=== PATIENT | female | born 1960 | race Caucasian/White ===

== ENCOUNTER 2017-04-30 00:40 | Observation (INO) ==
[2017-04-30 02:09] LABS: HEMOGLOBIN 15.6 g/dL (12.0-16.0); MCH 30.4 PG (27-31); MCHC 34.7 g/dL (33-37); MCV 87.7 FL (81-99); MPV 10.7 FL (7.4-10.4); RBC 5.13 XMIL (4.2-5.4)
[2017-04-30] MEDS ORDERED: DILAUDID IV ONE ×2 (02:10→04:23)
[2017-04-30] MEDS ORDERED: ZOFRAN IV ONE (02:12)
[2017-04-30 02:22] LABS: AGAP 17; ALBUMIN 4.1 g/dL (3.5-5.0); ALKALINE PHOSPHATASE 64 U/L (32-104); AMYLASE 20 U/L (20-200); BUN 11 mg/dL (8-22); CALCIUM 9.2 mg/dL (8.8-10.2); CHLORIDE 99 mmol/L (98-107); COSMO 281; GOT 13 U/L (10-30); GPT 8 U/L (10-36); LIPASE 12 U/L (13-60); POTASSIUM 3.3 mmol/L (3.5-5.1); SODIUM 141 mmol/L (136-145); TCO2 25 mmol/L (25-35); TOTAL BILIRUBIN 0.31 mg/dL (0.20-1.00); TOTAL PROTEIN 6.8 g/dL (6.3-8.3)
--- NOTE | 2017-04-30 04:22 | PROVIDER DOCUMENTATION ---
This chart was entered by Zoya Hung Scribe, acting as scribe for Catarino Cox MD. HPI-General Adult - General Chief Complaint: Abdominal Pain Stated Complaint: abd pain Time Seen by Provider: 04/30/17 02:15 Source: patient, family Allergies/Adverse Reactions: Patient Allergies Allergy/AdvReac Type Severity Reaction Status Date / Time dextromethorphan Allergy Unknown Verified 04/30/17 01:03 [From DURAPH[facility] DM] guaifenesin Allergy Unknown Verified 04/30/17 01:03 [From [facility]UR[facility] DM] phenylephrine Allergy Unknown Verified 04/30/17 01:03 [From [facility]URAPH[facility] DM] codeine AdvReac NAUSEA/VOMI Verified 04/30/17 01:03 TING Home Medications: Home Medication List Medication Instructions Recorded Confirmed Last Taken Type Lorazepam 1 mg PO PRN PRN 03/24/16 03/24/16 Unknown History Prasugrel [Effient] 10 mg PO DAILY 03/24/16 03/24/16 Unknown History - History of Present Illness -Gen Adult Nature of Presenting Problems: 57 Y/O F present to ER by EMS with the complain of abd pain, and back pain. pt states that she has Hx of pancreatic cancer and currently pancreatitis. pt states that she was seeing Dr. Santiago as her oncologist and was later refereed to pain treatment center. pt states pain in her back. pt states that she feels nauseated, vomit and diarrhea. pt states that she has done pancreatic evaluation at [facility] where they insert a needle to remove the cyst. Location of Pain/Injury: reports: abdomen, back Onset/Duration: reports: just prior to arrival Associated Symptoms: reports: back/neck pain, diarrhea, nausea, vomiting, other (abd pain) Review of Systems - Adult - REVIEW OF SYSTEMS - ADULT Constitutional: reports: no symptoms reported Eyes: reports: no symptoms reported Ears, Nose, Mouth & Throat: reports: no symptoms reported Cardiovascular: reports: no symptoms reported Respiratory: reports: no symptoms reported Gastrointestinal: reports: abdominal pain, diarrhea, nausea, vomiting Genitourinary: reports: no symptoms reported Musculoskeletal: reports: back pain. denies: neck pain Integumentary: reports: no symptoms reported Neurological: reports: no symptoms reported Psychiatric: reports: no symptoms reported Endocrine: reports: no symptoms reported Hematologic/Lymphatic: reports: no symptoms reported Allergic/Immunologic: reports: no symptoms reported All Other Systems: Reviewed and Negative Past History - Adult - PAST MEDICAL HISTORY-ADULT Review of Records: reports: Old Records Reviewed, Nursing Assessment Review - IMMUNIZATION STATUS Childhood Immunizations: See Nurse Assessment Flu Vaccine: See Nurse Assessment - SOCIAL HISTORY Smoking: cigarettes Provider spent 3-5 mins advising pt. on dangers of tobacco.: Discussed manners to quit use, and f/u contacts for add'l counseling. Physical Exam-General - PHYSICAL EXAM-ADULT Initial Vital Signs Reviewed: Yes - CONSTITUTIONAL General Appearance: appears well, alert - EYES Eyes: PERRL/EOMI, pink conjunctivae - NECK Neck: non-tender, full range of motion, supple - RESPIRATORY Respiratory: lungs clear, normal breath sounds - CARDIOVASCULAR Cardiovascular: regular rate, rhythm, no edema - GASTROINTESTINAL (ABDOMEN) Abdominal Exam: soft, tenderness (lower abd) - MUSCULOSKELETAL Back Exam: no vertebral tenderness, CVA tenderness - SKIN Integumentary: normal color, normal turgor, warm/dry - NEUROLOGIC Neurologic: grossly normal, no motor/sensory deficits - PSYCHIATRIC Psych/Mental Status: normal mood/affect, normal thought content, normal thought process, oriented x 3 Progress - PLAN OF CARE/RESULTS Progress/Plan/Lab Results: Vital Signs - 8 hr 04/30/17 00:55 Temperature 98.3 F Pulse Rate 79 Respiratory Rate 20 Blood Pressure 170/73 O2 Sat by Pulse Oximetry 100 Laboratory Results - last 24 hr 04/30/17 01:30 WBC 6.92 RBC 5.13 Hgb 15.6 Hct 45.0 MCV 87.7 MCH 30.4 MCHC 34.7 RDW Std Deviation 15.3 H Plt Count 147 MPV 10.7 H Orders Category Date Time Status AMYLASE [CHEM] Stat Lab 04/30/17 01:30 Received CBC WITH NO DIFF [HEME] Stat Lab 04/30/17 01:30 Completed COMPREHENSIVE METABOLIC PANEL [CHEM] Stat Lab 04/30/17 01:30 Received LIPASE [CHEM] Stat Lab 04/30/17 01:30 Received Hydromorphone [Dilaudid] Med 04/30/17 02:10 Discontinued 1 mg IV NOW ONE Ondansetron [Zofran] Med 04/30/17 02:12 Discontinued 4 mg IV NOW ONE Result Diagrams: 04/30/17 01:30 04/30/17 01:30 - CONSULTS/PCP/HOSPITALIST Notification #1 *Consult/PCP/Hospitalist*: Nakul Time Discussed: 04:20 Consult Disposition: Admit Departure - Departure Date of Disposition Decision: 04/30/17 Time of Disposition Decision: 04:21 DIAGNOSIS: Pancreatic cancer Disposition: ADMITTED INPATIENT 09 Certified Medical Emergency: Emergent Condition: Poor Referrals and Follow-Ups: None,PCP [Primary Care Provider] - - Critical Care Note This patient required my direct & personal management of CC.: Yes Total Time (mins): 45 Critical Care Statement: This patient required my direct personal management to treat or rule out processes, the absence of which, could potentiallly result in sudden, clinically significant life or limb threatening deterioration. This chart was documented by the indicated scribe, (Zoya Hung Scribe) and accurately reflects the services I performed and decisions made by me, Catarino Cox MD, as attested by the provider's signature.
--- NOTE | 2017-04-30 05:28 | HISTORY AND PHYSICAL ---
PRIMARY CARE PHYSICIAN: None. CHIEF COMPLAINT: Pain all over. HISTORY OF PRESENTING ILLNESS: A 57-year-old female with a history of pancreatic adenocarcinoma, status post recent pancreatic abalation who apparently had been on opioids for more than 15 years. Recently, she states that her pain doctor left the area , and that she was unable to get any appropriate pain control. She was started on fentanyl sublingual tablets; however, when she had gone to another pain clinic, they refused to write it for her and recommended she go for inpatient rehab. She presented to emergency department in moderate amount of distress, writhing in the bed with pain. States her pain level is about 10/10. Due to her acute nature of her pain, it was thought that she would need hospitalization for further treatment and management. At the time of my examination, she had denied any headache, fever, chills, chest pain, shortness of breath hemoptysis or any weight changes, but complained of her back and multiple other joints hurting. PAST MEDICAL HISTORY: pancreatic adenocarcinoma, coronary artery disease. PAST SURGICAL HISTORY: pancreatic abalation, coronary stent, hysterectomy, cholecystectomy. ALLERGIES: codeine, guaifenesin, phenylephrine. CURRENT MEDICATIONS: As listed in the MAR. SOCIAL HISTORY: A 40-pack year history of smoking. She denies any history of alcohol or illicit drug use. FAMILY HISTORY: Positive for coronary disease in mother and father. REVIEW OF SYSTEMS: Twelve point review of systems is as in HPI. Other systems negative. PHYSICAL EXAMINATION: GENERAL: Cooperative, friendly female. She is in moderate distress from pain. VITAL SIGNS: Includes temperature 98.3 degrees, pulse 79, respirations 20, blood pressure 117/73. She is saturating 100%. HEENT: Atraumatic, normocephalic. Extraocular movements intact. PERRLA. NECK: No masses. CHEST: Clear to auscultation. CARDIOVASCULAR: Regular rate and rhythm. ABDOMEN: Soft. Positive bowel sounds. EXTREMITIES: No edema. NEURO: She is awake, alert, oriented x3. : No bladder distention. SKIN: Warm. LABORATORIES AND STUDIES: WBC 6.92, hemoglobin 15.6, hematocrit 45.0, platelets 147,000. Sodium 141, potassium 3.3, chloride 99, CO2 25, BUN is 11, creatinine 0.6, glucose is 108. ASSESSMENT: This is a 57-year-old female with a history of pancreatic adenocarcinoma and coronary artery disease had presented to the emergency department due to having withdrawal symptoms due to lack of having any pain medications. The patient is opioid dependent greater than 15 years or so. Her pain specialist apparently does not practice in the area and she has been without appropriate pain control, she states. Due to her acute nature of her pain, she will need hospitalization for further stabilization. 1. Intractable pain. 2. Pancreatic adenocarcinoma. 3. Coronary artery disease. PLAN: 1. We will admit patient to medical floor. 2. We will continue with supportive treatment. Give IV fluids. Give patient adequate pain control. 3. We will consult Social Service for appropriate referral to a pain specialist. 4. We will consult her oncologist for assistance with her pancreatic adenocarcinoma. 5. Restart her home medications. 6. We will put patient on DVT prophylaxis with SCD. 7. We will continue to follow and reassess. cc: Vinayak Bruce MD MTDD
[2017-04-30] MEDS: NS 1,000 ML IV SCH ×2 (06:31→20:18)
[2017-04-30] MEDS: DILAUDID IV PRN ×5 (06:32→22:27)
[2017-04-30] MEDS: NORCO-10 PO PRN ×3 (12:17→20:16)
[2017-04-30] MEDS: ASPIRIN PO SCH (12:17)
--- NOTE | 2017-04-30 15:41 | CONSULTATION ---
DATE OF CONSULTATION: 04/30/2017 REASON FOR CONSULTATION: For pancreatic cancer, patient known. HISTORY OF PRESENT ILLNESS: Ms. Golden is a 57-year-old, female, who we have treated for pancreatic adenocarcinoma, who presented to [facility] complaining of all-over pain. Patient has recently been referred to a pain clinic as she is on chronic pain medications. Patient is no longer receiving chemo treatments. The patient reports that she went to the pain clinic, and they wanted to wean her off of some of her medications. They recommended that she go to an inpatient service to have that done. The patient declined. She is now in with opioid withdrawals. The patient is status post pancreatic ablation. Her last chemo was in 11/2016. She had pancreatic ablation in 01/2017. PAST MEDICAL HISTORY: 1. Pancreatic cancer. 2. Coronary artery disease. 3. Chronic pain. PAST SURGICAL HISTORY: 1. Pancreatic ablation. 2. Coronary stent placement. 3. Hysterectomy. 4. Cholecystectomy. SOCIAL HISTORY: Patient has a [id number] history of smoking. She denies any alcohol or illicit drug use. Patient is and lives with her spouse. She has 2 children. FAMILY HISTORY: Positive for coronary artery disease in both her mother and her father. REVIEW OF SYSTEMS: A 12-point review of systems has been completed and is negative except for what is expressed in the HPI. PHYSICAL EXAMINATION: Vital Signs: Temperature 98.8 degrees, heart rate 72, respirations 12, blood pressure 130/75, O2 saturations 96% on room air. General: female lying in the hospital bed. She is in no acute distress. HEENT: Head normocephalic, atraumatic. Eyes: Pupils equal, round, reactive. Ears, nose, throat, neck, and mouth: Oral mucosa is normal. Trachea is midline. Gross auditory acuity is intact. Cardiovascular: S1-S2 heard. No murmurs, gallops, rubs appreciated. Respiratory: Clear auscultation bilaterally. Normal respiratory effort. Gastrointestinal: Abdomen is soft. Positive bowel sounds. Musculoskeletal: Trace bilateral lower extremity edema noted. Neurologic: Patient is alert and oriented x3. No focal motor deficits. LABORATORY STUDIES: White blood cells 6.92, hemoglobin 15.6, hematocrit 45.0, platelets 147,000. Sodium 141, potassium 3.3, chloride 99, CO2 of 25. BUN 11, creatinine 0.6. Glucose 108. Lipase is 12 and amylase is 20. ASSESSMENT AND PLAN: 1. Pancreatic adenocarcinoma, status post chemo and pancreatic ablation. Patient has completed treatment about 3 months ago. She is scheduled to return to our office later this month with restaging scans. 2. Opioid withdrawal. The patient will need to follow back up with her pain physician upon discharge. We have discussed with the patient previously about the need to find and establish care with a chronic pain physician. 3. Coronary artery disease, aware. Dictated by ANGELO Delaney for Alisha Santiago MD cc: Alisha Santiago MD I have seen an examined the patient and agree with above A/P. Alisha Santiago MD [facility]AMPUSCarlos
[2017-04-30] MEDS: NEURONTIN PO SCH (20:17)
[2017-04-30] MEDS: MARINOL PO SCH (20:17)
[2017-04-30] MEDS: ATIVAN PO SCH (20:17)
[2017-05-01] MEDS: NORCO-10 PO PRN ×4 (00:53→12:44)
[2017-05-01] MEDS: DILAUDID IV PRN ×3 (02:57→11:35)
[2017-05-01] MEDS: NS 1,000 ML IV SCH ×3 (05:09→08:51)
[2017-05-01 05:22] LABS: MANUAL DIFF NEEDED? NO
[2017-05-01 05:26] LABS: BASO% 0.4 % (0.0-0.8); EOS# 0.04 X1000 (0.0-0.7); EOS% 0.6 % (0.0-10.0); HEMATOCRIT 44.2 % (37.0-47.0); HEMOGLOBIN 15.3 g/dL (12.0-16.0); LYMPH# 2.76 X1000 (1.2-3.4); LYMPH% 38.9 % (20.5-51.1); MCH 30.5 PG (27-31); MCHC 34.6 g/dL (33-37); MCV 88.2 FL (81-99); MONO# 0.48 X1000 (0.11-0.59); MONO% 6.8 % (1.7-9.3); MPV 10.9 FL (7.4-10.4); NEUT% 53.3 % (42.2-75.2); PLT 136 X1000 (130-400); RBC 5.01 XMIL (4.2-5.4)
[2017-05-01 06:07] LABS: AGAP 14; BUN 7 mg/dL (8-22); CALCIUM 8.8 mg/dL (8.8-10.2); CHLORIDE 103 mmol/L (98-107); COSMO 279; POTASSIUM 3.4 mmol/L (3.5-5.1); SODIUM 140 mmol/L (136-145); TCO2 23 mmol/L (25-35)
[2017-05-01 07:30] VITALS: BP 152/76
[2017-05-01] MEDS: NEURONTIN PO SCH (08:52)
[2017-05-01] MEDS: ATIVAN PO SCH (08:53)
[2017-05-01] MEDS: MARINOL PO SCH (08:53)
[2017-05-01] MEDS: ASPIRIN PO SCH (08:53)
[2017-05-01] MEDS ORDERED: EFFIENT PO SCH (09:00)
--- NOTE | 2017-05-01 17:07 | DISCHARGE SUMMARY ---
ADMISSION DATE: 04/30/2017 DISCHARGE DATE: 05/01/2017 DISCHARGE DIAGNOSES: 1. Intractable pain. 2. Pancreatic adenocarcinoma. 3. Coronary artery disease. CONSULTATIONS: Dr. Santiago from Hematology-Oncology. HOSPITAL COURSE: This is a 57-year-old, female with history of pancreatic cancer is status post recent pancreatic ablation who apparently has been on opiates for at least 15 years for back problems and also for this recent diagnosis of pancreatic cancer. Patient has been followed by a local pain doctor that is not available anymore so patient is being admitted to the hospital for intractable pain secondary to cancer and also for risks of withdrawals because the patient does not have any pain medications. What we have done here basically to provide pain medications that this patient was not able to get. The patient was feeling more comfortable. At discharge patient is going to be given 1 month supply of pain medication that she was getting before and we highly recommend this patient to look for a primary care physician. Patient is supposed to be seen by Dr. Santiago in the office next week so we suggest that she can be referred to a pain doctor from Dr. Santiago's office. The patient is being discharged in stable condition. PHYSICAL EXAMINATION: Vitals: Temperature 98.4 degrees, heart rate is 79, respiratory rate 18, blood pressure 152/76, O2 saturation 96% on room air. General examination: This is a 57-year- old, chronically ill-looking, frail, female lying in bed, in no acute distress. HEENT: Head is normocephalic, atraumatic. Anicteric sclerae and pale conjunctivae. Mucous membranes moist. Neck: Supple. No JVD noted. No carotid bruits. No lymphadenopathy. No thyromegaly. Cardiovascular: S1, S2 heard. No murmurs, gallops, or rubs. Regular rate and rhythm. Respiratory: Clear bilaterally to auscultation. No work of breathing or using accessory muscles. Abdomen: Soft, nontender to palpation in the epigastric area. No signs of peritoneal irritation. Extremities: No clubbing, cyanosis, or edema. Peripheral pulses present in both legs. Neurological: Patient alert and oriented x3. Able to move 4 extremities. Cranial nerves 2-12 grossly normal. DISCHARGE DISPOSITION: 1. To home to self-care. 2. Follow up with Dr. Alisha Santiago in 1 week. LIST OF MEDICATIONS: 1. Fentanyl patch 100 mg every 72 hours. 2. Percocet 5 one tablet p.o. every 4 hours as needed for pain. 3. Lorazepam 1 mg p.o. b.i.d. 4. Effient 10 mg 1 tablet p.o. daily. 5. Gabapentin 300 mg p.o. b.i.d. 6. Dronabinol 5 mg 1 tablet p.o. b.i.d. cc: Vern Blair MD
== END 2017-05-01 12:46 | disposition home or self-care (01) ==
LOC: ED 00:40 → 4N 00:40 → SUATTDRO 05:14
PROVIDERS: ATTEND Internal Medicine